=== PATIENT | female | born 1985 | race Asian ===

== ENCOUNTER 2016-11-02 13:55 | Emergency (ER) | payer BC, MEDICAID ==
[~2016-11-02] VITALS: Ht 160 cm; Wt 46.6 kg
[~2016-11-02 13:55] MED LIST: ACET325T14 PO; DIPH25CA61 PO; PREN1TAB60; URSO300C12 PO
[2016-11-02] MEDS ORDERED: ONDANSETRON 2MG/ML, 2ML ONE (14:28)
[2016-11-02] MEDS ORDERED: PROMETHAZINE 25 MG/ML, 1ML IM ONE (14:30)
[2016-11-02] MEDS ORDERED: SODIUM CHLORIDE FLUSH 10ML SYR IVF ONE (14:30)
[2016-11-02] MEDS ORDERED: SODIUM CHLORIDE 0.9% 1,000ML IVBOLUS ONE (14:30)
[2016-11-02] MEDS ORDERED: ONDANSETRON 2MG/ML, 2ML IVPush ONE ×2 (14:30→15:00)
[2016-11-02 14:47] LABS: HEMOGLOBIN 14.3 g/dL (11.7-16.4)
[2016-11-02 14:53] LABS: ASPARTATE AMINO TRANSFERASE 13 U/L (15-37); BLOOD UREA NITROGEN 10 mg/dL (7-18)
[2016-11-02 16:49] VITALS: BP 111/77
== END 2016-11-02 16:52 | disposition home or self-care (01) ==
LOC: ED 15:58
DX: O21.8 Other vomiting complicating pregnancy (principal); O26.891 Other specified pregnancy related conditions, first trimester; R10.31 Right lower quadrant pain; R10.32 Left lower quadrant pain; Z3A.10 10 weeks gestation of pregnancy; F41.9 Anxiety disorder, unspecified
CPT/HCPCS: 36415; 76801; 80053; 81003; 83690; 84702; 85025; 85379; 96361; 96374; 99285; J2405; J7030